=== PATIENT | female | born 1980 | race Caucasian/White ===

== ENCOUNTER → 2017-01-29 | Outpatient (CLI) | payer OTHER | LOC: LAB 14:30 | DX: R10.13 Epigastric pain (principal); R13.14 Dysphagia, pharyngoesophageal phase ==

== ENCOUNTER → 2017-02-07 | Outpatient (CLI) | payer OTHER | LOC: LAB 15:56 | DX: R53.81 Other malaise (principal) ==

== ENCOUNTER → 2017-08-01 | Outpatient (CLI) | payer OTHER | LOC: RAD 15:07 | DX: M25.512 Pain in left shoulder (principal) ==

== ENCOUNTER → 2017-09-09 | Outpatient (CLI) | payer OTHER | LOC: LAB 08:37 | DX: Z00.00 Encounter for general adult medical examination without abnormal findings (principal); Z13.220 Encounter for screening for lipoid disorders; Z23 Encounter for immunization; J45.20 Mild intermittent asthma, uncomplicated ==

== ENCOUNTER → 2018-12-24 | Outpatient (CLI) | payer OTHER ==
[2018-12-24 18:05] LABS: BASO # 0.1 (0.02-0.10); EOS # 0.1 (0.04-0.40); EOS % 1.6 % (1.0-5.0); HEMATOCRIT 39.9 % (37.0-47.0); MEAN CELL VOLUME 89 fl (78-100); MEAN CORPUSCULAR HEMOGLOBIN 29 pg (27-31); MEAN CORPUSCULAR HGB CONC 33 g/dL (33-37); MEAN PLATELET VOLUME 10.4 fl (7.4-10.4); MONO # 0.5 (0.20-0.80); NEU # 4.1 (1.40-6.50); PLATELET COUNT 276 K/mm3 (130-400); RED CELL DISTRIBUTION WIDTH 12.8 % (11.5-14.5); WHITE BLOOD COUNT 6.8 K/mm3 (4.8-10.8)
[2018-12-24 18:20] LABS: ALBUMIN 4.4 g/dL (3.5-5.0); POTASSIUM 3.8 mmol/L (3.5-5.1)
[2018-12-24 18:22] LABS: CALCIUM 9.7 mg/dL (8.3-10.5)
[2018-12-24 18:23] LABS: TOTAL PROTEIN 8.1 g/dL (6.4-8.3)
[2018-12-24 18:25] LABS: TOTAL BILIRUBIN 0.4 mg/dL (0.2-1.2)
== END ==
LOC: LAB 17:18
PROVIDERS: Physician Assistant
DX: Z00.00 Encounter for general adult medical examination without abnormal findings (principal); E78.5 Hyperlipidemia, unspecified; E73.9 Lactose intolerance, unspecified; J45.20 Mild intermittent asthma, uncomplicated; E04.1 Nontoxic single thyroid nodule; R63.5 Abnormal weight gain; R53.83 Other fatigue

== ENCOUNTER → 2019-05-14 | Outpatient (CLI) | payer OTHER | LOC: LAB 15:58 | DX: N39.0 Urinary tract infection, site not specified (principal) ==

== ENCOUNTER 2020-01-22 14:28 | Emergency (ER) | payer OTHER ==
[~2020-01-22] VITALS: Ht 160 cm; Wt 75.0 kg
[2020-01-22] MEDS ORDERED: VIBRAMYCIN HYC100 MG PO (14:51)
[2020-01-22 15:04] LABS: BASO # 0.1 (0.02-0.10); EOS # 0.1 (0.04-0.40); EOS % 1.2 % (1.0-5.0); HEMATOCRIT 42.6 % (37.0-47.0); HEMOGLOBIN 13.5 g/dL (12.5-16.0); LYMPH# 1.3 (1.50-4.00); MEAN CELL VOLUME 89 fl (78-100); MEAN CORPUSCULAR HEMOGLOBIN 28 pg (27-31); MEAN CORPUSCULAR HGB CONC 32 g/dL (33-37); MEAN PLATELET VOLUME 10.9 fl (7.4-10.4); MONO # 0.5 (0.20-0.80); NEU # 3.9 (1.40-6.50); PLATELET COUNT 256 K/mm3 (130-400); RED BLOOD COUNT 4.79 M/mm3 (4.10-5.30); RED CELL DISTRIBUTION WIDTH 12.7 % (11.5-14.5); WHITE BLOOD COUNT 5.8 K/mm3 (4.8-10.8)
[2020-01-22 15:13] LABS: ALBUMIN 4.3 g/dL (3.5-5.0)
[2020-01-22 15:14] LABS: CALCIUM 9.4 mg/dL (8.3-10.5)
[2020-01-22 15:15] LABS: TOTAL PROTEIN 6.8 g/dL (6.4-8.3)
[2020-01-22 15:17] LABS: TOTAL BILIRUBIN 0.3 mg/dL (0.2-1.2)
[2020-01-22 15:30] LABS: PH-URINE 8.5 (5.0 - 8.0); URINE APPEARANCE CLEAR; URINE BILIRUBIN NEGATIVE (NEGATIVE); URINE BLOOD NEGATIVE (NEGATIVE); URINE COLOR YELLOW; URINE GLUCOSE NEGATIVE (NEGATIVE); URINE KETONE NEGATIVE (NEGATIVE); URINE LEUKOCYTE ESTERASE NEGATIVE (NEGATIVE); URINE NITRATE NEGATIVE (NEGATIVE); URINE PROTEIN(semi-quant) NEGATIVE (NEGATIVE); URINE UROBILINOGEN NORMAL (NORMAL); URINE WBC 0-1 /hpf (0-3)
[2020-01-22 16:42] VITALS: BP 112/72
== END 2020-01-22 16:42 | disposition home or self-care (01) ==
LOC: ED 14:28
PROVIDERS: Nurse Practitioner Primary Care
DX: R55 Syncope and collapse (principal)

== ENCOUNTER → 2020-04-19 | Outpatient (CLI) | payer OTHER ==
[~2020-04-19] MED LIST: VIBRAMYCIN HYC100 MG PO
== END ==
LOC: LAB 09:04
DX: Z20.828 Contact with and (suspected) exposure to other viral communicable diseases (principal)

== ENCOUNTER → 2020-06-09 | Outpatient (CLI) | payer OTHER | LOC: RAD 17:00 | DX: G93.89 Other specified disorders of brain (principal); R55 Syncope and collapse | CPT/HCPCS: A9585 ==

== ENCOUNTER → 2020-06-16 | Outpatient (CLI) | payer OTHER | LOC: RAD 16:51 | DX: G93.89 Other specified disorders of brain (principal) | CPT/HCPCS: A9585 ==

== ENCOUNTER → 2021-04-20 | Outpatient (CLI) | payer OTHER | LOC: RAD 16:55 | DX: G93.89 Other specified disorders of brain (principal) | CPT/HCPCS: A9585 ==

== ENCOUNTER → 2022-02-08 | Outpatient (CLI) | payer OTHER ==
[2022-02-08 09:06] LABS: BASO # 0.07 K/mm3 (0.02-0.10); EOS # 0.13 K/mm3 (0.04-0.40); EOS % 2.2 % (1.0-5.0); HEMATOCRIT 41.5 % (37.0-47.0); HEMOGLOBIN 13.4 g/dL (12.5-16.0); LYMPH# 1.45 K/mm3 (1.50-4.00); MEAN CELL VOLUME 89 fl (78-100); MEAN CORPUSCULAR HEMOGLOBIN 29 pg (27-31); MEAN CORPUSCULAR HGB CONC 32 g/dL (33-37); MEAN PLATELET VOLUME 10.3 fl (7.4-10.4); MONO # 0.43 K/mm3 (0.20-0.80); NEU # 3.79 K/mm3 (1.40-6.50); PLATELET COUNT 265 K/mm3 (130-400); RED BLOOD COUNT 4.67 M/mm3 (4.10-5.30); RED CELL DISTRIBUTION WIDTH 12.3 % (11.5-14.5); WHITE BLOOD COUNT 5.9 K/mm3 (4.8-10.8)
[2022-02-08 09:11] LABS: ALBUMIN 4.3 g/dL (3.5-5.0); POTASSIUM 3.9 mmol/L (3.5-5.1)
[2022-02-08 09:12] LABS: CALCIUM 9.6 mg/dL (8.3-10.5)
[2022-02-08 09:14] LABS: TOTAL PROTEIN 6.8 g/dL (6.4-8.3)
[2022-02-08 09:15] LABS: TOTAL BILIRUBIN 0.4 mg/dL (0.2-1.2)
== END ==
LOC: LAB 08:42
PROVIDERS: Physician Assistant
DX: Z00.00 Encounter for general adult medical examination without abnormal findings (principal); Z13.220 Encounter for screening for lipoid disorders; R53.83 Other fatigue; Z13.29 Encounter for screening for other suspected endocrine disorder; J45.20 Mild intermittent asthma, uncomplicated; E04.1 Nontoxic single thyroid nodule; Z13.1 Encounter for screening for diabetes mellitus; Z23 Encounter for immunization; K90.9 Intestinal malabsorption, unspecified

== ENCOUNTER → 2023-04-16 | Outpatient (CLI) | payer OTHER ==
[2023-04-16 08:42] LABS: BASO # 0.05 K/mm3 (0.02-0.10); EOS # 0.15 K/mm3 (0.04-0.40); EOS % 3.1 % (1.0-5.0); HEMATOCRIT 40.8 % (37.0-47.0); HEMOGLOBIN 13.1 g/dL (12.5-16.0); LYMPH# 1.53 K/mm3 (1.50-4.00); MEAN CELL VOLUME 90 fl (78-100); MEAN CORPUSCULAR HEMOGLOBIN 29 pg (27-31); MEAN CORPUSCULAR HGB CONC 32 g/dL (33-37); MONO # 0.39 K/mm3 (0.20-0.80); NEU # 2.73 K/mm3 (1.40-6.50); PLATELET COUNT 297 K/mm3 (130-400); RED BLOOD COUNT 4.53 M/mm3 (4.10-5.30); RED CELL DISTRIBUTION WIDTH 12.6 % (11.5-14.5); WHITE BLOOD COUNT 4.9 K/mm3 (4.8-10.8)
[2023-04-16 08:56] LABS: ALBUMIN 4.2 g/dL (3.5-5.0)
[2023-04-16 08:57] LABS: CALCIUM 9.3 mg/dL (8.3-10.5)
[2023-04-16 08:58] LABS: TOTAL PROTEIN 7.1 g/dL (6.4-8.3)
[2023-04-16 09:00] LABS: TOTAL BILIRUBIN 0.4 mg/dL (0.2-1.2)
== END ==
LOC: LAB 08:09
PROVIDERS: Physician Assistant
DX: Z00.00 Encounter for general adult medical examination without abnormal findings (principal); Z23 Encounter for immunization; Z12.31 Encounter for screening mammogram for malignant neoplasm of breast; Z13.29 Encounter for screening for other suspected endocrine disorder; Z13.1 Encounter for screening for diabetes mellitus; Z13.220 Encounter for screening for lipoid disorders; J45.20 Mild intermittent asthma, uncomplicated; E04.1 Nontoxic single thyroid nodule; E73.9 Lactose intolerance, unspecified; N92.0 Excessive and frequent menstruation with regular cycle; K90.9 Intestinal malabsorption, unspecified

== ENCOUNTER → 2023-11-06 | Outpatient (CLI) | payer OTHER | LOC: RAD 16:20 | DX: M25.512 Pain in left shoulder (principal); M25.522 Pain in left elbow; M25.561 Pain in right knee; Z87.828 Personal history of other (healed) physical injury and trauma ==

== ENCOUNTER → 2024-06-01 | Outpatient (CLI) | payer OTHER ==
[2024-06-01 09:45] LABS: BASO # 0.08 K/mm3 (0.02-0.10); EOS # 0.14 K/mm3 (0.04-0.40); EOS % 2.7 % (1.0-5.0); HEMATOCRIT 43.4 % (37.0-47.0); HEMOGLOBIN 13.7 g/dL (12.5-16.0); MEAN CELL VOLUME 90 fl (78-100); MEAN CORPUSCULAR HEMOGLOBIN 29 pg (27-31); MEAN CORPUSCULAR HGB CONC 32 g/dL (33-37); MEAN PLATELET VOLUME 9.6 fl (7.4-10.4); MONO # 0.34 K/mm3 (0.20-0.80); NEU # 2.81 K/mm3 (1.40-6.50); PLATELET COUNT 316 K/mm3 (130-400); RED CELL DISTRIBUTION WIDTH 12.3 % (11.5-14.5); WHITE BLOOD COUNT 5.3 K/mm3 (4.8-10.8)
[2024-06-01 09:53] LABS: ALBUMIN 4.4 g/dL (3.5-5.0)
[2024-06-01 09:54] LABS: CALCIUM 9.7 mg/dL (8.3-10.5)
[2024-06-01 09:55] LABS: TOTAL PROTEIN 7.4 g/dL (6.4-8.3)
[2024-06-01 09:57] LABS: TOTAL BILIRUBIN 0.4 mg/dL (0.2-1.2)
== END ==
LOC: MAMMO 08:50
PROVIDERS: Physician Assistant
DX: Z12.31 Encounter for screening mammogram for malignant neoplasm of breast (principal)